=== PATIENT | female | born 1960 | race Caucasian/White ===

== ENCOUNTER → 2021-05-18 | Outpatient (CLI) | payer MEDICARE, MEDICAID ==
[~2021-05-18] MED LIST: ANORO IH; B-121000 MCG PO; CALCIUM; CALCIUM 600-D 61 TAB PO; MILK THISTLE500 MG PO; NORCO 325 MG-7.1 TAB; NORCO 325 MG-7.1 TAB PO; PROAIR HFA0.09 MG/AC IH; STIOLTO RESPIMAT4 GM IH; VITAMIN B121000 MC1; [UNRECOGNIZED DRUG - OTHER]
== END ==
LOC: COL.RAD 11:44
DX: Z12.2 Encounter for screening for malignant neoplasm of respiratory organs (principal); Z87.891 Personal history of nicotine dependence